=== PATIENT | male | born 2000 | race Caucasian/White ===

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

== ENCOUNTER 2020-09-14 10:24 | Emergency (ER) | payer BC, OTHER ==
--- NOTE | 2020-09-14 10:37 | EDM.PDOC ---
ED HPI GENERAL MEDICAL PROBLEM - General Chief Complaint: Trauma Stated Complaint: HEAD INJURY Time Seen by Provider: 09/14/20 10:35 Source of Information: Reports: Patient History Limitations: Reports: No Limitations - History of Present Illness INITIAL COMMENTS - FREE TEXT/NARRATIVE: 20-year-old male presents to the ED for evaluation of a right lateral forehead laceration that occurred at work this morning. Injury occurred around 0630 hrs. when he was struck by a piece of 1 inch [place] piece of steel. He denies any cervical neck pain. Does have a headache. He felt woozy dizzy and nearly passed out a couple of times other cleaning him up and putting these zip Steri- Strips in place. His tetanus toxoid is up-to-date. He suffered no other injuries. He was concerned about concussion but he has no amnesia for the event did not ask questions over and over again but what happened to him. [place] so unlikely have suffered a concussion. The injury did not knock him down. Onset: Today, Sudden Onset Date: 09/14/20 Onset Time: 06:30 Duration: Hour(s):, Constant Location: Reports: Face (Right lateral forehead laceration) Quality: Reports: Ache, Throbbing (Mild.) Severity: Mild Improves with: Reports: None Worsens with: Reports: None Context: Reports: Trauma (Struck with a piece of 1 inch piece of steel which resulted in a 1.5 to 2 cm laceration right lateral mid forehead). Denies: Activity, Exercise, Lifting, Sick Contact Associated Symptoms: Reports: No Other Symptoms, Other. 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: Other (see below) (He did not take anything for pain.) Headache Pain Score (Numeric/FACES): 4 - Related Data Allergies Allergy/AdvReac Type Severity Reaction Status Date / Time No Known Allergies Allergy Verified 09/14/20 10:36 Home Meds: Home Meds Albuterol [Proair HFA] 2 puff INH QID PRN 05/25/14 [History] Cetirizine [ZyrTEC] 10 mg PO DAILY 03/03/15 [History] Past Medical History HEENT History: Reports: Allergic Rhinitis Respiratory History: Reports: Asthma Other Respiratory History: seasonal allergies Musculoskeletal History: Reports: Fracture (left foot, 2013) Other Musculoskeletal History: left foot fracture 2013 - Past Surgical History GI Surgical History: Reports: Hernia, Inguinal (right, 2010) Social & Family History - Living Situation & Occupation Living situation: Reports: Single, with Family Occupation: Student (going in to 11th grade) Review of Systems - Review of Systems Review Of Systems: See Below Constitutional: Reports: No Symptoms Eyes: Reports: Glasses, Other (Problems with allergic rhinitis.) Ears: Reports: No Symptoms Nose: Reports: No Symptoms Mouth/Throat: Reports: No Symptoms Respiratory: Reports: No Symptoms Cardiovascular: Reports: No Symptoms GI/Abdominal: Reports: No Symptoms Genitourinary: Reports: No Symptoms Musculoskeletal: Reports: No Symptoms Skin: Reports: Other (Near syncope.Laceration right lateral forehead) Neurological: Reports: Dizziness (Is he had dizziness.), Syncope Psychiatric: Reports: No Symptoms ED EXAM, GENERAL - Physical Exam Exam: See Below Exam Limited By: No Limitations General Appearance: Alert, WD/WN, No Apparent Distress, Other Eye Exam: Bilateral Eye: Normal Inspection, PERRL Head: Other (Patient has a jagged 1.5 cm laceration right mid forehead) Neck: Normal Inspection ( that is held together by zip Steri-Strips at present. It is not actively bleeding.), Supple, Non-Tender, Full Range of Motion. No: Lymphadenopathy (L), Lymphadenopathy (R) Respiratory/Chest: No Respiratory Distress, Lungs Clear, Normal Breath Sounds, No Accessory Muscle Use Cardiovascular: Normal Peripheral Pulses, Regular Rate, Rhythm, No Edema, No Gallop, No Murmur, No Rub ED TRAUMA PROCEDURES - Laceration/Wound Repair Right Middle Forehead Lac/Wound Length In cm: 1.5 Appearance: Subcutaneous, Stellate, Mildly Contaminated Anesthetic Type: Local Local Anesthesia - Lidocaine (Xylocaine): 1% Plain Local Anesthetic Volume: 2cc Skin Prep: Saline Closed With: Sutures Suture Size: 4-0 # of Sutures: 4 Suture Type: Nylon, Interrupted, Simple Course - Vital Signs Last Recorded V/S: Last Vital Signs Temp 36.5 C 09/14/20 11:15 Pulse 48 L 09/14/20 11:15 Resp 16 09/14/20 11:15 BP 108/73 09/14/20 11:15 Pulse Ox 98 09/14/20 11:15 - Orders/Labs/Meds Meds: Medications Discontinued Medications Generic Name Dose Route Start Last Admin Trade Name Tano PRN Reason Stop Dose Admin Lidocaine HCl 10 ml 09/14/20 10:41 09/14/20 10:56 Lidocaine 1% 10 Ml Mdv INJECT 09/14/20 10:42 10 ml ONETIME ONE Administration Ondansetron HCl 4 mg 09/14/20 10:50 09/14/20 10:57 Ondansetron 4 Mg Tab.Dis PO 09/14/20 10:51 4 mg ONETIME ONE Administration Ondansetron HCl Confirm 09/14/20 10:51 09/14/20 10:57 Ondansetron 4 Mg Tab.Dis Administered 09/14/20 10:52 Not Given Dose 4 mg .ROUTE .[facility] ONE - Radiology Interpretation Free Text/Narrative:: 20-year-old male presents to the ED with a work-related injury. He was struck accidentally by a 1 inch piece of pipe like rebar in the right forehead this morning. It resulted in a 2 cm jagged laceration right lateral mid forehead. It is held together by zip Steri-Strips which is stop the bleeding. Patient has a associated mild headache. Offered analgesia but he declined. Tetanus toxoid is up-to-date. He did not feel very well for a period of time particularly when they were cleaning up his wound and applying the Steri-Strips. [place] weak dizzy lightheaded like he might faint. Clinically he is not exhibiting any signs or symptoms of concussion type illness. Plan the wound will be sutured under local anesthetic. He reports that he is a little nauseated. Really does not care for the site of his old blood. Will be given Zofran 4 mg sublingual - Re-Assessments/Exams Free Text/Narrative Re-Assessment/Exam: 09/14/20 11:14 1.5 cm jagged laceration right mid forehead was cleansed with normal saline and then sutured under local anesthetic times four 4-0 nylon sutures. Patient is to daily cleanse the wound with soap and water. Showering is okay. Then apply topical antibiotic such as bacitracin or Polysporin to the wound once daily to prevent secondary infection. Sutures will need to be removed in 8 days time. Departure - Departure Time of Disposition: 11:13 Disposition: Home, Self-Care 01 Condition: Fair Clinical Impression: Laceration of forehead Qualifiers: Encounter type: initial encounter Qualified Code(s): S01.81XA - Laceration without foreign body of other part of head, initial encounter - Discharge Information *PRESCRIPTION DRUG MONITORING PROGRAM REVIEWED*: Not Applicable *COPY OF PRESCRIPTION DRUG MONITORING REPORT IN PATIENT XI: Not Applicable Instructions: Laceration Care, Adult Referrals: Randi Aquino [employer] [Primary Care Provider] - Forms: ED Department Discharge, ED Return to Work/School Form Additional Instructions: Evaluation in the emergency room today in regards to work-related injury with blunt force trauma to your right lateral mid forehead. Injury occurred around 0630 hrs. this morning. He was seen about 4 hours after the accident. You have a 1.5 cm jagged laceration right mid lateral forehead that was cleansed and then sutured under local anesthetic times 4 sutures. Tetanus toxoid is felt to be up-to-date. Treatment at home is to daily cleanse the wound with soap and water. Showering is okay. Then apply topical antibiotic such as bacitracin or Polysporin to the wound once daily to prevent secondary infection. Sutures will need to be removed in 8 days time. Please make an appointment at your primary care physicians clinic to have them removed or return to the ED if clinics are closed. It is okay to take Tylenol Motrin for headache relief if needed. Sepsis Event Note (ED) - Focused Exam Vital Signs: Vital Signs Temp Pulse Resp BP Pulse Ox 09/14/20 11:15 36.5 C 48 L 16 108/73 98 09/14/20 10:30 36.2 C 54 L 18 107/71 99
[2020-09-14] MEDS ORDERED: Lidocaine 1% 10 ML MDV INJECT ONE (10:41)
[2020-09-14] MEDS ORDERED: Ondansetron 4 MG Tab.DIS PO ONE (10:50)
[2020-09-14] MEDS ORDERED: Ondansetron 4 MG Tab.DIS ONE (10:51)
[2020-09-14 11:16] VITALS: BP 108/73; PULSE 48
== END 2020-09-14 11:24 | disposition home or self-care (01) ==
LOC: JD.ED 10:24
DX: S01.81XA Laceration without foreign body of other part of head, initial encounter (principal); J45.909 Unspecified asthma, uncomplicated; W22.8XXA Striking against or struck by other objects, initial encounter; Y99.0 Civilian activity done for income or pay
CPT/HCPCS: 12011; 99283; A9270